=== PATIENT | female | born 1935 | race Caucasian/White ===

== ENCOUNTER 2020-06-30 06:24 | Observation (INO) | payer MEDICARE, BC ==
[~2020-06-30] VITALS: Ht 162.6 cm; Wt 54.4 kg
[~2020-06-30 06:24] MED LIST: COREG3.125 MG PO; COSOPT EYE DROP10 ML EYEBOTH; COZAAR 25MG TAB25 MG PO; CRESTOR20 MG PO; IBUPROFEN600 MG PO; IMURAN50 MG PO; OMNICEF 300 MG300 MG PO; XALATAN OP SOL2.5 ML EYEBOTH
[2020-06-30 08:15] LABS: HEMOGLOBIN 14.3 gm/dl (12.3-15.3); RED BLOOD COUNT 4.79 M/UL (4.00-5.10); WHITE BLOOD COUNT 9.7 K/UL (4.5-11.0)
[2020-06-30 08:28] LABS: BUN/CREATININE RATIO 28 (0-10)
[2020-06-30] MEDS ORDERED: PREDNISONE 5 MG5 MG PO (12:14)
[2020-06-30] MEDS ORDERED: NORVASC5 MG PO (12:15)
[2020-06-30] MEDS ORDERED: ACETAMINOPHEN500 MG PO (12:18)
[2020-06-30] MEDS ORDERED: ASPIRIN EC81 MG PO (12:18)
[2020-06-30] MEDS ORDERED: OMNICEF 300 MG300 MG PO (12:19)
[2020-07-01 02:31] LABS: HEMOGLOBIN 12.9 gm/dl (12.3-15.3)
[2020-07-01 02:40] LABS: RED BLOOD COUNT 4.3 M/UL (4.00-5.10); WHITE BLOOD COUNT 6.3 K/UL (4.5-11.0)
[2020-07-02 03:27] LABS: HEMOGLOBIN 12.1 gm/dl (12.3-15.3); RED BLOOD COUNT 4.02 M/UL (4.00-5.10); WHITE BLOOD COUNT 5.9 K/UL (4.5-11.0)
--- NOTE | 2020-07-02 18:35 | NUR ---
REPORT GIVEN TO NURSE FROM [facility].
== END 2020-07-02 17:06 | disposition home or self-care (01) ==
LOC: ER1 06:24 → CDU 10:04 → MED SURG 4 10:04
PROVIDERS: Family Medicine; Physician Assistant; ADMIT Internal Medicine Infectious Disease
DX: I12.9 Hypertensive chronic kidney disease with stage 1 through stage 4 chronic kidney disease, or unspecified chronic kidney disease (principal); N17.9 Acute kidney failure, unspecified; N18.30 Chronic kidney disease, stage 3 unspecified; R42 Dizziness and giddiness; D84.9 Immunodeficiency, unspecified; E87.1 Hypo-osmolality and hyponatremia; H40.9 Unspecified glaucoma; I25.2 Old myocardial infarction; Z86.73 Personal history of transient ischemic attack (TIA), and cerebral infarction without residual deficits; Z20.828 Contact with and (suspected) exposure to other viral communicable diseases; Z79.82 Long term (current) use of aspirin; Z79.899 Other long term (current) drug therapy
CPT/HCPCS: 36415; 71046; 80048; 80053; 81001; 82550; 82553; 82962; 83036; 83690; 84484; 85025; 93005; 97161; 97165; 99285; G0378; J7030; U0002